=== PATIENT | male | born 1930 | race Native Hawaiian/Other Pacific Islander ===

== ENCOUNTER 2016-07-25 16:02 | Emergency (ER) | payer OTHER ==
[~2016-07-25] VITALS: Ht 165.1 cm; Wt 88.9 kg
[~2016-07-25 16:02] MED LIST: ACET-689 PO; ALBUSOL IN; ALLEGRA ALRG180 M1 PO; BENZ100C8 PO; BISOPROL FUM5 MG PO; CEFD300C2 PO; CETIRIZINE10 MG PO; CIPRO500 MG PO; FLOXIN OT; FLUT0.05 NAS; FLUTMIS6 INH; FURO40TA93 PO; KLOR-CON M2020 MEQ OR; LEVO0.0218 PO; MECL25TA84 PO; MECLIZINE25 MG PO; MUCINEX600 MG OR; OMEP20CA PO; PRILOSEC20 MG OR; RYBIX ODT50 MG OR; SINGULAIR10 MG PO; TERAZOSIN10 MG OR; TYLENOL ARTH650 MG OR; WARF5TAB6 PO; ZEBETA5 MG OR
[2016-07-25 19:24] VITALS: BP 166/85; TEMP 98.7
== END 2016-07-25 19:31 | disposition home or self-care (01) ==
LOC: ED 16:02
DX: M47.896 Other spondylosis, lumbar region (principal); M12.88 Other specific arthropathies, not elsewhere classified, other specified site; W01.0XXA Fall on same level from slipping, tripping and stumbling without subsequent striking against object, initial encounter; Y92.098 Other place in other non-institutional residence as the place of occurrence of the external cause
CPT/HCPCS: 96372; 99283; J2270

== ENCOUNTER 2016-08-01 02:56 | Emergency (ER) | payer OTHER ==
[~2016-08-01] VITALS: Ht 165.1 cm; Wt 92.5 kg
[2016-08-01 05:10] VITALS: BP 154/85; TEMP 97.8
== END 2016-08-01 05:16 | disposition home or self-care (01) ==
LOC: ED 02:56
DX: N20.0 Calculus of kidney (principal); N23 Unspecified renal colic
CPT/HCPCS: 81000; 96372; 99283; J1885

== ENCOUNTER 2017-03-25 11:10 | Inpatient (IN) | payer OTHER ==
[~2017-03-25] VITALS: Ht 165.1 cm; Wt 88.5 kg
[2017-03-25 11:15] VITALS: BP 136/64; TEMP 98.2
[2017-03-25] MEDS ORDERED: TAMS0.4C PO (11:29)
[2017-03-25] MEDS ORDERED: MIDODRINE5 MG OR (11:31)
[2017-03-25] MEDS ORDERED: FINA5TAB2 PO (11:32)
[2017-03-25] MEDS ORDERED: TRAM50TA PO (11:34)
[2017-03-25] MEDS ORDERED: ROBAXIN-750750 MG PO (11:35)
[2017-03-25 12:45] LABS: PLATELET COUNT 133 K/uL (142-355)
[2017-03-25 12:48] VITALS: BP 11/76
[2017-03-25 12:54] LABS: POTASSIUM 4.4 mmol/L (3.6-5.2)
[2017-03-25 13:30] VITALS: BP 111/81
[2017-03-25 15:11] LABS: PARTIAL THROMBOPLASTIN TIME 28.8 SECONDS (24.5-33.6)
[2017-03-25 16:19] VITALS: BP 121/71; TEMP 98.4; Ht 165.1 cm; Wt 88.5 kg
[2017-03-25 20:26] VITALS: BP 116/62; TEMP 98.3
--- NOTE | 2017-03-25 22:10 | NUR ---
HOME CPAP HAS BEEN SENT UP AT THIS TIME FOR PATIENT TO USE TONIGHT
[2017-03-26] VITALS: BP 113/56; TEMP 97.6
[2017-03-26 05:03] LABS: PLATELET COUNT 129 K/uL (142-355)
[2017-03-26 08:15] LABS: POTASSIUM 4.1 mmol/L (3.6-5.2)
[2017-03-26 16:34] VITALS: BP 111/60; TEMP 97.8
[2017-03-26 20:00] VITALS: BP 131/67; TEMP 98.2
[2017-03-27] VITALS: BP 114/60; TEMP 98
[2017-03-27 05:57] LABS: PLATELET COUNT 130 K/uL (142-355)
[2017-03-27 06:34] LABS: POTASSIUM 3.7 mmol/L (3.6-5.2)
[2017-03-27 08:14] VITALS: BP 131/60; TEMP 98.6
[2017-03-27 12:15] VITALS: BP 118/63; TEMP 98.6
[2017-03-27 16:00] VITALS: BP 119/61; TEMP 98.8
[2017-03-27 16:01] VITALS: BP 115/55; TEMP 98.8
[2017-03-27 20:02] VITALS: BP 132/56; TEMP 97.8
[2017-03-28] VITALS: BP 131/73; TEMP 97.9
[2017-03-28 05:28] LABS: PLATELET COUNT 154 K/uL (142-355)
[2017-03-28 05:44] LABS: POTASSIUM 3.9 mmol/L (3.6-5.2)
[2017-03-28 08:00] VITALS: BP 136/73; TEMP 97.5
--- NOTE | 2017-03-28 09:00 | NUR ---
IV SITE TO RIGHT FOREARM WAS LEAKING. NEW IV SITE STARTED (22G TO RIGHT FOREARM). NO PROBLEMS NOTED.
[2017-03-28 11:52] VITALS: BP 117/65; TEMP 97.6
[2017-03-28 20:00] VITALS: BP 123/63; TEMP 98.4
[2017-03-29 06:36] LABS: POTASSIUM 3.6 mmol/L (3.6-5.2)
[2017-03-29 06:46] LABS: PLATELET COUNT 181 K/uL (142-355)
[2017-03-29 08:01] VITALS: BP 124/59; TEMP 98
--- NOTE | 2017-03-29 13:18 | NUR ---
DC INSTRUCTIONS GIVEN. PT INSTRUCTED TO CALL FOR FOLLOW UP APPT OFFICE DID NOT ANSWER AT THIS TIME. IV DC'D WITH CANNULA INTACT AND SITE CARE PROVIDED.
--- NOTE | 2017-03-29 13:40 | NUR ---
PT LEFT VIA WC AT THIS TIME. NAD NOTED
== END 2017-03-29 12:40 | disposition home or self-care (01) | DRG 194 ==
LOC: ED 11:10 → MED/SURG 13:30
PROVIDERS: ADMIT Emergency Medicine
DX: J18.8 Other pneumonia, unspecified organism (principal); J44.0 Chronic obstructive pulmonary disease with (acute) lower respiratory infection; G47.30 Sleep apnea, unspecified; I48.91 Unspecified atrial fibrillation; N40.0 Benign prostatic hyperplasia without lower urinary tract symptoms; N18.3 Chronic kidney disease, stage 3 (moderate); J84.89 Other specified interstitial pulmonary diseases
CPT/HCPCS: 36415; 36600; 80053; 80200; 81000; 82550; 82805; 83735; 83880; 84443; 84484; 85007; 85027; 85610; 85730; 87040; 87070; 87205; 94640; 94664; 94760; 96372; 99284; J0696; J1956; J2543; J2920; J3260

== ENCOUNTER 2018-01-05 11:43 | Outpatient (CLI) | payer OTHER ==
[~2018-01-05 11:43] MED LIST changes: +FINA5TAB2 PO; +MIDODRINE5 MG OR; +ROBAXIN-750750 MG PO; +TAMS0.4C PO; +TRAM50TA PO
== END 2018-01-05 19:33 | disposition home or self-care (01) ==
LOC: RAD 11:43
DX: J16.8 Pneumonia due to other specified infectious organisms (principal)

== ENCOUNTER 2018-01-11 15:03 | Inpatient (IN) | payer OTHER ==
[~2018-01-11] VITALS: Ht 170.2 cm; Wt 92.2 kg
[2018-01-11 17:26] LABS: PLATELET COUNT 206 K/uL (142-355)
[2018-01-11 17:37] VITALS: BP 109/55; TEMP 98.6; Ht 170.2 cm; Wt 92.2 kg
[2018-01-11 17:43] LABS: POTASSIUM 4.2 mmol/L (3.6-5.2)
[2018-01-11 20:00] VITALS: BP 109/48; TEMP 98.4
[2018-01-12] VITALS (7 sets, daily range): BP systolic 102–126; BP diastolic 49–60; TEMP 97.5–98.7
[2018-01-12 05:09] LABS: PLATELET COUNT 208 K/uL (142-355)
[2018-01-12 05:31] LABS: POTASSIUM 4.1 mmol/L (3.6-5.2)
[2018-01-13 04:00] VITALS: BP 108/53; TEMP 98.3
[2018-01-13 06:34] LABS: PLATELET COUNT 204 K/uL (142-355)
[2018-01-13 06:54] LABS: POTASSIUM 3.7 mmol/L (3.6-5.2)
[2018-01-13 08:05] VITALS: BP 133/70; TEMP 97.8
[2018-01-13 12:00] VITALS: BP 160/70; TEMP 97.8
[2018-01-13 16:05] VITALS: BP 105/51; TEMP 99.5
[2018-01-13 20:00] VITALS: BP 132/69; TEMP 98.1
[2018-01-14] VITALS: BP 112/58; TEMP 98.6
[2018-01-14 03:52] VITALS: BP 118/54; TEMP 98.3
[2018-01-14 08:04] VITALS: BP 114/55; TEMP 97.6
[2018-01-14 09:22] LABS: PLATELET COUNT 200 K/uL (142-355)
[2018-01-14 12:25] VITALS: BP 120/59; TEMP 97.8
[2018-01-14 12:29] LABS: POTASSIUM 3.9 mmol/L (3.6-5.2)
[2018-01-14 16:00] VITALS: BP 107/49; TEMP 98
[2018-01-14 20:11] VITALS: BP 124/60; TEMP 97.4
[2018-01-15] VITALS (7 sets, daily range): BP systolic 99–136; BP diastolic 50–70; TEMP 97.5–98.4
[2018-01-15 04:36] LABS: PLATELET COUNT 193 K/uL (142-355)
[2018-01-15 05:09] LABS: POTASSIUM 4.1 mmol/L (3.6-5.2)
[2018-01-16 04:00] VITALS: BP 116/62; TEMP 97.4
[2018-01-16 05:19] LABS: PLATELET COUNT 180 K/uL (142-355)
[2018-01-16 05:33] LABS: POTASSIUM 4.6 mmol/L (3.6-5.2)
[2018-01-16 08:00] VITALS: BP 145/65; TEMP 98.4
[2018-01-16 11:45] VITALS: BP 137/72; TEMP 98.4
[2018-01-16 16:00] VITALS: BP 116/53; TEMP 98.7
[2018-01-16 20:00] VITALS: BP 125/63; TEMP 97.4
[2018-01-17 00:15] VITALS: BP 128/63; TEMP 97.4
[2018-01-17 04:00] VITALS: BP 138/70; TEMP 97.8
[2018-01-17 05:17] LABS: PLATELET COUNT 170 K/uL (142-355)
[2018-01-17 08:00] VITALS: BP 160/77; TEMP 98.4
== END 2018-01-17 11:30 | disposition home or self-care (01) | DRG 192 ==
LOC: MED/SURG 15:03
PROVIDERS: Family Medicine
DX: J44.1 Chronic obstructive pulmonary disease with (acute) exacerbation (principal); E03.8 Other specified hypothyroidism; N18.3 Chronic kidney disease, stage 3 (moderate); K21.9 Gastro-esophageal reflux disease without esophagitis; N40.0 Benign prostatic hyperplasia without lower urinary tract symptoms; K59.09 Other constipation; I48.91 Unspecified atrial fibrillation; Z86.73 Personal history of transient ischemic attack (TIA), and cerebral infarction without residual deficits
CPT/HCPCS: 36415; 80053; 83735; 85027; 87040; 87070; 87077; 87185; 87186; 87205; 93005; 94640; 94664; 94760; 96360; 96367; J0456; J0696; J2930